=== PATIENT | female | born 1975 | race Hispanic/Latino ===

== ENCOUNTER 2022-04-13 13:59 | Emergency (ER) | payer MEDICARE ==
[~2022-04-13] VITALS: Ht 152.4 cm; Wt 56.7 kg
[~2022-04-13 13:59] MED LIST: AMBIEN10 MG PO; AMITRIPTYLINE H75 MG PO; ATENOLOL25 MG PO; BACLOFEN10 MG PO; BUPROPION HCL75 MG PO; CLONAZEPAM1 MG PO; DIAZEPAM5 MG PO; DILAUDID8 MG PO; FIORICET; HYDROMORPHONE; HYDROXYZINE HCL50 MG PO; LACOSAMIDE; LAMICTAL100 MG PO; LEXAPRO10 MG PO; MELOXICAM15 MG PO; MELOXICAM7.5 MG PO; METHADONE HCL10 MG PO; PROAIR HFA INH8.5 GM; TENORMIN50 MG PO; TIZANIDINE HCL4 MG PO; TRAZODONE HCL100 MG PO; XOPENEX HFA15 GM; Z GEODON PO; Z MIRTAZAPINE PO; Z.0.AMBIEN10 MG; Z.0.BACLOFEN10 MG PO; Z.0.LAMICTAL200 MG PO; Z.0.TRAZODONE HCL100; Z.0.XANAX1 MG; Z.0.ZOLOFT100 MG PO; ZONISAMIDE100 MG PO; [UNRECOGNIZED DRUG - REMARK]
[2022-04-13] MEDS ORDERED: ONDANSETRON HCL INJ 2MG/ML 2ML 2 MG/ML VIAL IV STA (14:19)
[2022-04-13] MEDS ORDERED: PROTONIX20 MG PO (14:29)
[2022-04-13] MEDS ORDERED: ONDANSETRON ODT4 MG PO (14:29)
[2022-04-13] MEDS ORDERED: MAGNESIUM/ALUMINUM/SIMETHICONE 30 ML UDC PO ONE (14:30)
[2022-04-13] MEDS ORDERED: PANTOPRAZOLE SOD 40 MG TABEC PO ONE (14:30)
[2022-04-13] MEDS ORDERED: LIDOCAINE VISC 2% SOLN 15 ML UDC PO ONE (14:30)
[2022-04-13] MEDS ORDERED: ONDANSETRON HCL INJ 2MG/ML 2ML 2 MG/ML VIAL ONE (14:31)
[2022-04-13] MEDS ORDERED: MAGNESIUM/ALUMINUM/SIMETHICONE 30 ML UDC ONE (14:31)
[2022-04-13] MEDS ORDERED: LIDOCAINE VISC 2% SOLN 15 ML UDC ONE (14:31)
== END 2022-04-13 16:28 | disposition home or self-care (01) ==
LOC: ER 14:02
DX: K29.70 Gastritis, unspecified, without bleeding (principal); R19.7 Diarrhea, unspecified; F32.A Depression, unspecified; F41.9 Anxiety disorder, unspecified; Z79.899 Other long term (current) drug therapy
CPT/HCPCS: 99283; J2405